=== PATIENT | female | born 1980 | race Asian ===

== ENCOUNTER 2023-01-07 17:32 | Emergency (ER) | payer OTHER ==
[~2023-01-07] VITALS: Ht 172.7 cm; Wt 104.3 kg
[2023-01-07] MEDS ORDERED: METF-495 PO (17:58)
[2023-01-07] MEDS ORDERED: METO50TA16 PO (17:58)
--- NOTE | 2023-01-07 18:00 | NUR ---
Dr Ceja at the bedside for MSE.
[2023-01-07] MEDS ORDERED: CYCLOBENZAPRINE HCL 10 MG TABLET ONE (18:09)
[2023-01-07] MEDS ORDERED: ONDANSETRON 4 MG/2 ML VIAL ONE (18:09)
[2023-01-07] MEDS ORDERED: CYCLOBENZAPRINE HCL 10 MG TABLET PO ONE (18:15)
[2023-01-07] MEDS ORDERED: ONDANSETRON 4 MG/2 ML VIAL IV ONE (18:15)
[2023-01-07] MEDS ORDERED: ONDA4TAB11 PO (18:20)
[2023-01-07] MEDS ORDERED: CYCL5TAB PO (18:20)
[2023-01-07 18:22] LABS: HEMATOCRIT 41.1 % (31.2-41.9); MEAN CORPUSCULAR HEMOGLOBIN 27.4 uug (24.7-32.8); MEAN CORPUSCULAR VOLUME 84.2 fL (75.5-95.3); PLATELET COUNT (AUTO) 195 K/uL (179-408)
[2023-01-07] MEDS ORDERED: LORAZEPAM 2 MG/1 ML VIAL ONE ×2 (18:30→19:19)
[2023-01-07] MEDS ORDERED: LORAZEPAM 2 MG/1 ML VIAL IV ONE ×2 (18:30→19:30)
[2023-01-07 18:35] LABS: CREATININE 0.7 mg/dL (0.6-1.3); POTASSIUM 3.5 mmol/L (3.5-5.1)
[2023-01-07 18:49] LABS: BILIRUBIN,DIRECT 0.2 mg/dL (0.0-0.2); BILIRUBIN,TOTAL 0.6 mg/dL (0.2-1.0); TOTAL PROTEIN, SERUM 7.6 g/dL (6.4-8.2)
--- NOTE | 2023-01-07 19:05 | NUR ---
Sent to CT in stable condition.
--- NOTE | 2023-01-07 19:14 | NUR ---
Faisal metal wire technician called stating the patient is still feeling "claustrophobic", and is refusing to have the CT scan done at this time de to her anxiety.
--- NOTE | 2023-01-07 19:20 | NUR ---
Patient taken back to the room, pet technologist was unable to perform the scan. ERMD planning to order an extra milligram of Ativan for anxiety.
--- NOTE | 2023-01-07 20:08 | NUR ---
film laboratory technician here for transport to Radiology for scan. Patient states she is less anxious at this time and is willing to try again.
--- NOTE | 2023-01-07 21:23 | NUR ---
Patient discharged to home in stable condition. Written and verbal after care instructions given. Patient verbalizes understanding of instructions. Stressed follow up or return to ER for worsening s/s. Patient ambulated with steady gait. Instructed that she may not drive d/t medications given today. States her daughter will pick her up. A/Ox4.
[2023-01-07 21:24] VITALS: BP 149/88; O2SAT 99
== END 2023-01-07 21:24 | disposition home or self-care (01) ==
LOC: ER 17:32
DX: R11.10 Vomiting, unspecified (principal); R51.9 Headache, unspecified; E11.9 Type 2 diabetes mellitus without complications; Z79.899 Other long term (current) drug therapy; V89.2XXA Person injured in unspecified motor-vehicle accident, traffic, initial encounter; Y93.89 Activity, other specified; Y92.89 Other specified places as the place of occurrence of the external cause; Y99.8 Other external cause status
CPT/HCPCS: 99285; 96374; 70450; 96375; 80076; 80048; 83690; 85025; 96376; J2060 ×2; J2405; A4663